=== PATIENT | male | born 1975 | race Caucasian/White ===

== ENCOUNTER 2021-03-18 08:00 | Outpatient (CLI) | payer BC ==
[2021-03-18 18:17] LABS: ALBUMIN 4.2 g/dL (3.2-5.5); ALBUMIN/GLOBULIN RATIO 1.2 (1.0-2.2); BILIRUBIN,TOTAL 0.4 mg/dL (0.2-1.0); CALCIUM 9.2 mg/dL (8.5-10.3); CREATININE 0.8 mg/dL (0.6-1.2); TOTAL PROTEIN 7.7 g/dL (6.7-8.2)
== END 2021-03-18 23:59 | disposition home or self-care (01) ==
LOC: LAB.S 08:00
PROVIDERS: ATTEND Physician Assistant
DX: R03.0 Elevated blood-pressure reading, without diagnosis of hypertension (principal)
CPT/HCPCS: 36415; 80053

== ENCOUNTER 2021-04-13 12:41 | Outpatient (CLI) | payer BC ==
[2021-04-13 13:17] LABS: ALBUMIN 4.3 g/dL (3.2-5.5); ALBUMIN/GLOBULIN RATIO 1.2 (1.0-2.2); BILIRUBIN,TOTAL 0.6 mg/dL (0.2-1.0); CALCIUM 9.1 mg/dL (8.5-10.3); CREATININE 0.8 mg/dL (0.6-1.2); POTASSIUM 3.7 mmol/L (3.5-5.0); TOTAL PROTEIN 7.8 g/dL (6.7-8.2)
== END 2021-04-13 12:42 | disposition home or self-care (01) ==
LOC: LAB 12:41
PROVIDERS: ATTEND Physician Assistant Medical
DX: Z01.812 Encounter for preprocedural laboratory examination (principal); R74.8 Abnormal levels of other serum enzymes; K42.9 Umbilical hernia without obstruction or gangrene; Z20.822 Contact with and (suspected) exposure to COVID-19
CPT/HCPCS: 36415; 80053

== ENCOUNTER 2021-04-18 06:20 | Day surgery (SDC) | payer BC ==
--- OUTSIDE RECORDS SUMMARY | 2021-04-18 06:22 | EXTERNAL MEDICAL SUMMARY RPT | Continuity of Care Document ---
:1975 Demographics Phone Unavailable Preferred Language Unknown Marital Status Unknown Rastafari Affiliation Unknown Race Unknown Ethnic Group Unknown Author Organization [place] Address [address] [id number] Phone Care Team Providers Name Role Phone MA Unavailable Unavailable CIRCULAR STUFFER Unavailable Unavailable PA-C Unavailable Unavailable PA-C Unavailable Unavailable Problems date description facility [id number] COMPREHENSIVE METABOLIC PANEL [facility] [id number] Liver enzymes abnormal [facility] [id number] Abnormal levels of other serum enzymes [facility] [id number] Other abnormal blood chemistry [facility] [id number] COMPREHENSIVE METABOLIC PANEL [facility] [id number] Tobacco smoking status [facility] [id number] Elevated blood-pressure reading, [facility] & without diagnosis of hypertension [facility] [id number] Elevated blood pressure reading [facility] & without diagnosis of hypertension [facility] [id number] Sprain of unspecified site of left [facility] & knee, initial encounter [facility] [id number] Elevated blood-pressure reading [facility] & without diagnosis of hypertension [facility] [id number] Congenital malformation, unspecified [facility] [id number] Congenital anomaly, unspecified [facility] [id number] Sprain of left knee [facility] [id number] Current every day smoker [facility] [id number] Abnormal umbilical cord [facility] Procedures date description facility [id number] COMPREHENSIVE METABOLIC PANEL [facility] [id number] COMPREHENSIVE METABOLIC PANEL [facility] [id number] COMPREHENSIVE METABOLIC PANEL [facility] [id number] COMPREHENSIVE METABOLIC PANEL [facility] Results test status date ordered by attending specimen loree e urea_nitrogen_blood unknown [id number] unknown unknown unk nown Glomerular_Filtration_ unknown 06626161 unknown unknown unknown rate potassium_blood unknown 82074501 unknown unknown unknown Glomerular_filtration_r unknown 80033160 unknown unknown unknown ate_1.73_sq_M.predicted _among_non-blacks_Volum e_Rate_Area_in_Serum_Pl asma_or_Blood_by_Creati nine-based_formula_MDRD _ bilirubin_serum_total unknown [id number] unknown unknown u nknown alanine_aminotransfera unknown 00384376 unknown unknown unknown se_SGPT_serum carbon_dioxide_serum_t unknown [id number] unknown unknown unknown otal aspartate_aminotransfe unknown 44412249 unknown unknown unknown rase_SGOT_serum protein_total_serum unknown 31473265 unknown unknown unk nown blood_glucose unknown 70667276 unknown unknown unknown potassium_blood unknown 97942790 unknown unknown unknown Urea_nitrogen_Mass_vol unknown 13532664 unknown unknown unknown ume_in_Serum_or_Plasma globulin_serum unknown 48441020 unknown unknown unknown alkaline_phosphatase_s unknown 28645550 unknown unknown unknown irina Sodium_Moles_volume_in unknown 36081085 unknown unknown unknown _Serum_or_Plasma Protein_Mass_volume_in unknown 98435764 unknown unknown unknown _Serum_or_Plasma anion_gap_serum unknown 27345910 unknown unknown unknown Glucose_Mass_volume_in unknown 75631501 unknown unknown unknown _Serum_or_Plasma Globulin_Mass_volume_i unknown 35677314 unknown unknown unknown n_Serum Creatinine_Mass_volume unknown 90555595 unknown unknown unknown _in_Serum_or_Plasma Chloride_Moles_volume_ unknown 38070506 unknown unknown unknown in_Serum_or_Plasma carbon_dioxide_serum_t unknown 31492471 unknown unknown unknown otal Calcium_Moles_volume_i unknown 45987692 unknown unknown unknown n_Serum_or_Plasma albumin_serum unknown 58831271 unknown unknown unknown Bilirubin.total_Mass_v unknown 87451076 unknown unknown unknown olume_in_Serum_or_Plasm a Aspartate_aminotransfe unknown 29672006 unknown unknown unknown rase_Enzymatic_activity _volume_in_Serum_or_Pla sma Anion_gap_4_in_Serum_o unknown 86496158 unknown unknown unknown r_Plasma creatinine_serum unknown 38629795 unknown unknown unknow n Alkaline_phosphatase_E unknown 63914235 unknown unknown unknown nzymatic_activity_volum e_in_Blood Albumin_Globulin_Mass_ unknown 98425994 unknown unknown unknown Ratio_in_Serum_or_Plasm a Albumin_Mass_volume_in unknown 05832908 unknown unknown unknown _Serum_or_Plasma Alanine_aminotransfera unknown 32058857 unknown unknown unknown se_Enzymatic_activity_v olume_in_Serum_or_Plasm a sodium_serum unknown 23260883 unknown unknown unknown albumin_globulin_ratio unknown 09793361 unknown unknown unknown _serum chloride_serum unknown 17148363 unknown unknown unknown calcium_serum unknown 91400483 unknown unknown unknown T unknown 58212975 unknown unknown unknown T unknown 54966907 unknown unknown unknown T unknown 64257927 unknown unknown unknown T unknown 97214561 unknown unknown unknown T unknown 08967311 unknown unknown unknown T unknown 04178721 unknown unknown unknown T unknown 41384385 unknown unknown unknown GFR_-_MDRD unknown 52438502 unknown unknown unknown T unknown 30100690 unknown unknown unknown T unknown 74126791 unknown unknown unknown T unknown 74570025 unknown unknown unknown T unknown 85341257 unknown unknown unknown T unknown 64722105 unknown unknown unknown T unknown 16292656 unknown unknown unknown BILIRUBIN_TOTAL unknown 39887089 unknown unknown unknown T unknown 25866214 unknown unknown unknown T unknown 40684323 unknown unknown unknown T unknown 91999409 unknown unknown unknown ALT_ALANINE_AMINOTRANS unknown 90999669 unknown unknown unknown FERASE ALKALINE_PHOSPHATASE unknown 03247980 unknown unknown un known T unknown 24663906 unknown unknown unknown T unknown 67237776 unknown unknown unknown ALBUMIN_GLOBULIN_RATIO unknown 86061342 unknown unknown unknown urea_nitrogen_blood unknown 83341807 unknown unknown unk nown Glomerular_Filtration_ unknown 68390107 unknown unknown unknown rate potassium_blood unknown 87573300 unknown unknown unknown Glomerular_filtration_r unknown 83001144 unknown unknown unknown ate_1.73_sq_M.predicted _among_non-blacks_Volum e_Rate_Area_in_Serum_Pl asma_or_Blood_by_Creati nine-based_formula_MDRD _ bilirubin_serum_total unknown 06821486 unknown unknown u nknown alanine_aminotransfera unknown 47615825 unknown unknown unknown se_SGPT_serum carbon_dioxide_serum_t unknown 84681275 unknown unknown unknown otal aspartate_aminotransfe unknown 10239400 unknown unknown unknown rase_SGOT_serum protein_total_serum unknown 38674453 unknown unknown unk nown blood_glucose unknown 01046150 unknown unknown unknown potassium_blood unknown 66021464 unknown unknown unknown Urea_nitrogen_Mass_vol unknown 06234364 unknown unknown unknown ume_in_Serum_or_Plasma globulin_serum unknown 06945125 unknown unknown unknown alkaline_phosphatase_s unknown 20073990 unknown unknown unknown irina Sodium_Moles_volume_in unknown 39095785 unknown unknown unknown _Serum_or_Plasma Protein_Mass_volume_in unknown 90599296 unknown unknown unknown _Serum_or_Plasma anion_gap_serum unknown 00546153 unknown unknown unknown Glucose_Mass_volume_in unknown 46626340 unknown unknown unknown _Serum_or_Plasma Globulin_Mass_volume_i unknown 84003786 unknown unknown unknown n_Serum Creatinine_Mass_volume unknown 96136291 unknown unknown unknown _in_Serum_or_Plasma Chloride_Moles_volume_ unknown 26195476 unknown unknown unknown in_Serum_or_Plasma carbon_dioxide_serum_t unknown 90862742 unknown unknown unknown otal Calcium_Moles_volume_i unknown 63533585 unknown unknown unknown n_Serum_or_Plasma albumin_serum unknown 10543721 unknown unknown unknown Bilirubin.total_Mass_v unknown 14653920 unknown unknown unknown olume_in_Serum_or_Plasm a Aspartate_aminotransfe unknown 41156433 unknown unknown unknown rase_Enzymatic_activity _volume_in_Serum_or_Pla sma Anion_gap_4_in_Serum_o unknown 06487858 unknown unknown unknown r_Plasma creatinine_serum unknown 84906466 unknown unknown unknow n Alkaline_phosphatase_E unknown 61121246 unknown unknown unknown nzymatic_activity_volum e_in_Blood Albumin_Globulin_Mass_ unknown 44110811 unknown unknown unknown Ratio_in_Serum_or_Plasm a Albumin_Mass_volume_in unknown 34587336 unknown unknown unknown _Serum_or_Plasma Alanine_aminotransfera unknown 05768472 unknown unknown unknown se_Enzymatic_activity_v olume_in_Serum_or_Plasm a sodium_serum unknown 19242354 unknown unknown unknown albumin_globulin_ratio unknown 55533019 unknown unknown unknown _serum chloride_serum unknown 78453588 unknown unknown unknown calcium_serum unknown 56660628 unknown unknown unknown T unknown 79104946 unknown unknown unknown T unknown 13727860 unknown unknown unknown T unknown 08266263 unknown unknown unknown T unknown 20239125 unknown unknown unknown T unknown 16531931 unknown unknown unknown T unknown 07964205 unknown unknown unknown T unknown 00436219 unknown unknown unknown GFR_-_MDRD unknown 48457666 unknown unknown unknown T unknown 35090389 unknown unknown unknown T unknown 90506161 unknown unknown unknown T unknown 47210218 unknown unknown unknown T unknown 42337253 unknown unknown unknown T unknown 79287134 unknown unknown unknown T unknown 38589480 unknown unknown unknown BILIRUBIN_TOTAL unknown 34789758 unknown unknown unknown T unknown 51639708 unknown unknown unknown T unknown 47912842 unknown unknown unknown T unknown 65804626 unknown unknown unknown ALT_ALANINE_AMINOTRANS unknown 24784069 unknown unknown unknown FERASE ALKALINE_PHOSPHATASE unknown 35013240 unknown unknown un known T unknown 39833132 unknown unknown unknown T unknown 27231840 unknown unknown unknown ALBUMIN_GLOBULIN_RATIO unknown 27301725 unknown unknown unknown urea_nitrogen_blood unknown 63601343 unknown unknown unk nown Glomerular_Filtration_ unknown 55682041 unknown unknown unknown rate potassium_blood unknown 12138038 unknown unknown unknown Glomerular_filtration_r unknown 99084658 unknown unknown unknown ate_1.73_sq_M.predicted _among_non-blacks_Volum e_Rate_Area_in_Serum_Pl asma_or_Blood_by_Creati nine-based_formula_MDRD _ bilirubin_serum_total unknown 31957530 unknown unknown u nknown alanine_aminotransfera unknown 68530745 unknown unknown unknown se_SGPT_serum carbon_dioxide_serum_t unknown 75133874 unknown unknown unknown otal aspartate_aminotransfe unknown 91317483 unknown unknown unknown rase_SGOT_serum protein_total_serum unknown 83305760 unknown unknown unk nown blood_glucose unknown 70602816 unknown unknown unknown potassium_blood unknown 43162234 unknown unknown unknown Urea_nitrogen_Mass_vol unknown 28554881 unknown unknown unknown ume_in_Serum_or_Plasma globulin_serum unknown 40287584 unknown unknown unknown alkaline_phosphatase_s unknown 70416959 unknown unknown unknown irina Sodium_Moles_volume_in unknown 10402813 unknown unknown unknown _Serum_or_Plasma Protein_Mass_volume_in unknown 23043074 unknown unknown unknown _Serum_or_Plasma anion_gap_serum unknown 48483462 unknown unknown unknown Glucose_Mass_volume_in unknown 42876495 unknown unknown unknown _Serum_or_Plasma Globulin_Mass_volume_i unknown 98716619 unknown unknown unknown n_Serum Creatinine_Mass_volume unknown 35860719 unknown unknown unknown _in_Serum_or_Plasma Chloride_Moles_volume_ unknown 41375267 unknown unknown unknown in_Serum_or_Plasma carbon_dioxide_serum_t unknown 32541234 unknown unknown unknown otal Calcium_Moles_volume_i unknown 22481441 unknown unknown unknown n_Serum_or_Plasma albumin_serum unknown 98144173 unknown unknown unknown Bilirubin.total_Mass_v unknown 17479453 unknown unknown unknown olume_in_Serum_or_Plasm a Aspartate_aminotransfe unknown 33064725 unknown unknown unknown rase_Enzymatic_activity _volume_in_Serum_or_Pla sma Anion_gap_4_in_Serum_o unknown 09278222 unknown unknown unknown r_Plasma creatinine_serum unknown 79395516 unknown unknown unknow n Alkaline_phosphatase_E unknown 53329009 unknown unknown unknown nzymatic_activity_volum e_in_Blood Albumin_Globulin_Mass_ unknown 59371751 unknown unknown unknown Ratio_in_Serum_or_Plasm a Albumin_Mass_volume_in unknown 92187387 unknown unknown unknown _Serum_or_Plasma Alanine_aminotransfera unknown 79456470 unknown unknown unknown se_Enzymatic_activity_v olume_in_Serum_or_Plasm a sodium_serum unknown 48845669 unknown unknown unknown albumin_globulin_ratio unknown 31866830 unknown unknown unknown _serum chloride_serum unknown 60682965 unknown unknown unknown calcium_serum unknown 88385736 unknown unknown unknown T unknown 41030040 unknown unknown unknown T unknown 77455653 unknown unknown unknown T unknown 13748647 unknown unknown unknown T unknown 37165586 unknown unknown unknown T unknown 46816902 unknown unknown unknown T unknown 73873779 unknown unknown unknown T unknown 17487383 unknown unknown unknown GFR_-_MDRD unknown 73451780 unknown unknown unknown T unknown 98322719 unknown unknown unknown T unknown 83445056 unknown unknown unknown T unknown 26516091 unknown unknown unknown T unknown 86390965 unknown unknown unknown T unknown 55606273 unknown unknown unknown T unknown 20210318 unknown unknown unknown BILIRUBIN_TOTAL unknown 20210318 unknown unknown unknown T unknown 20210318 unknown unknown unknown T unknown 20210318 unknown unknown unknown T unknown 20210318 unknown unknown unknown ALT_ALANINE_AMINOTRANS unknown 20210318 unknown unknown unknown FERASE ALKALINE_PHOSPHATASE unknown 20210318 unknown unknown un known T unknown 20210318 unknown unknown unknown T unknown 20210318 unknown unknown unknown ALBUMIN_GLOBULIN_RATIO unknown 20210318 unknown unknown unknown facility observation status value reference units lab code abn ormal line range notes [facility] urea_nitroge unknown 17 unknown mg/dL _9 unknow n unknown Clinic n_blood [facility] Glomerular_F unknown 105 unknown mL/min _66455 unknow n unknown Clinic iltration_rat Primary e [facility] potassium_bl unknown 4.0 unknown meq/L _6298-4 unkno wn unknown Clinic ood [facility] Glomerular_fi unknown 105 unknown mL/min _48642-3 unkn own unknown Clinic ltration_rate Primary _1.73_sq_M.pr Care & edicted_among Ancillary _non-blacks_V Services olume_Rate_Ar [facility] ea_in_Serum_P lasma_or_Bloo d_by_Creatini ne-based_form ula_MDRD_ [facility] bilirubin_se unknown 0.4 unknown mg/dL _43 unknow n unknown Clinic rum_total [facility] alanine_amin unknown 129 unknown U/L _40 unknow n unknown Clinic otransferase_ Primary SGPT_serum [facility] carbon_dioxi unknown 24 unknown mmol/L _3962 unknow n unknown Clinic de_serum_tota Primary l [facility] aspartate_am unknown 114 unknown U/L _39 unknow n unknown Clinic inotransferas Primary e_SGOT_serum [facility] protein_tota unknown 7.7 unknown g/dL _36 unknow n unknown Clinic l_serum [facility] blood_glucos unknown 109 unknown mg/dL _3565 unknow n unknown Clinic e [facility] potassium_bl unknown 4.0 unknown meq/L _3483 unknow n unknown Clinic ood [facility] Urea_nitroge unknown 17 unknown mg/dL _3094-0 unkno wn unknown Clinic n_Mass_volume Primary _in_Serum_or_ Care & Plasma [facility] globulin_ser unknown 3.5 unknown _3059 unknow n unknown Clinic um [facility] alkaline_pho unknown 85 unknown U/L _3 unknow n unknown Clinic sphatase_seru Primary m [facility] Sodium_Moles unknown 142 unknown mmol/L _2951-2 unkno wn unknown Clinic _volume_in_Se Primary rum_or_Plasma [facility] Protein_Mass unknown 7.7 unknown g/dL _2885-2 unkno wn unknown Clinic _volume_in_Se Primary rum_or_Plasma [facility] anion_gap_se unknown 11.0 unknown _279 unknow n unknown Clinic rum [facility] Glucose_Mass unknown 109 unknown mg/dL _2345-7 unkno wn unknown Clinic _volume_in_Se Primary rum_or_Plasma [facility] Globulin_Mas unknown 3.5 unknown _2336-6 unkno wn unknown Clinic s_volume_in_S Primary irina [facility] Creatinine_M unknown 0.8 unknown mg/dL _2160-0 unkno wn unknown Clinic ass_volume_in Primary _Serum_or_Pla Care & sma [facility] Chloride_Mol unknown 107 unknown mmol/L _5-0 unkno wn unknown Clinic es_volume_in_ Primary Serum_or_Plas Care & ma Ancillary [facility] carbon_dioxi unknown 24 unknown mmol/L _2027- unkno wn unknown Clinic de_serum_tota Primary l [facility] Calcium_Mole unknown 9.2 unknown mg/dL _1999-8 unkno wn unknown Clinic s_volume_in_S Primary erum_or_Plasm Care & a [facility] albumin_seru unknown 4.2 unknown g/dL _2 unknow n unknown Clinic m [facility] Bilirubin.to unknown 0.4 unknown mg/dL _1974- unkno wn unknown Clinic tal_Mass_volu Primary me_in_Serum_o Care & r_Plasma [facility] Aspartate_am unknown 114 unknown U/L _1920-8 unkno wn unknown Clinic inotransferas Primary e_Enzymatic_a Care & ctivity_volum Ancillary e_in_Serum_or Services _Plasma [facility] Anion_gap_4_ unknown 11.0 unknown _1863-0 unkno wn unknown Clinic in_Serum_or_P Primary lasma Care & [facility]illary [facility] creatinine_s unknown 0.8 unknown mg/dL _18 unknow n unknown Clinic irina [facility] Alkaline_pho unknown 85 unknown U/L _1783-0 unkno wn unknown Clinic sphatase_Enzy Primary matic_activit Care & y_volume_in_B Ancillary lood Services [facility] Albumin_Glob unknown 1.2 unknown _1759-0 unkno wn unknown Clinic ulin_Mass_Rat Primary io_in_Serum_o Care & r_Plasma [facility] Albumin_Mass unknown 4.2 unknown g/dL _1751-7 unkno wn unknown Clinic _volume_in_Se Primary rum_or_Plasma [facility] Alanine_amin unknown 129 unknown U/L _1742-6 unkno wn unknown Clinic otransferase_ Primary Enzymatic_act Care & ivity_volume_ Ancillary in_Serum_or_P Services lasma [facility] sodium_serum unknown 142 unknown mmol/L _159 unknow n unknown Clinic [facility] albumin_glob unknown 1.2 unknown _146 unknow n unknown Clinic ulin_ratio_se Primary rum [facility] chloride_ser unknown 107 unknown mmol/L _13 unknow n unknown Clinic um [facility] calcium_seru unknown 9.2 unknown mg/dL _11 unknow n unknown Clinic m [facility] T unknown 0.4 unknown mg/dL TOTAL_BI unknown u nknown Clinic LI [facility] T unknown 7.7 unknown g/dL PRO_TOTA unknown u [facility] L [facility] T unknown 142 unknown mmol/L NA unknown [facility] T unknown 4.0 unknown meq/L K unknown [facility] T unknown 109 unknown mg/dL GLU unknown [facility] T unknown 3.[address] [facility] T unknown 105 unknown mL/min GFR_-_MD unknown [facility] RD [facility] GFR_-_MDRD unknown 105 unknown mL/min GFR unknown unknown Clinic [facility] T unknown 11.[address] [facility] T unknown 0.8 unknown mg/dL CREAT unknown [facility] T unknown 24 unknown mmol/L CO2 unknown [facility] T unknown 107 unknown mmol/L CL unknown [facility] T unknown 9.2 unknown mg/dL CA unknown [facility] T unknown 17 unknown mg/dL BUN unknown [facility] BILIRUBIN_TO unknown 0.4 unknown mg/dL BILIT unknow n unknown Clinic SUSANNE [facility] T unknown 1.2 unknown A_G_RATI unknown u [facility] O [facility] T unknown 114 unknown U/L AST unknown [facility] T unknown 129 unknown U/L ALT_SGPT unknown u [facility] _ [facility] ALT_ALANINE_ unknown 129 unknown U/L ALT unknow n unknown Clinic AMINOTRANSFER Primary ASE Care & Ancillary Services [facility] ALKALINE_PHO unknown 85 unknown U/L ALP unknow n unknown Clinic SPHATASE [facility] T unknown 85 unknown U/L ALK_PHOS unknown u nknown Clinic [facility] T unknown 4.2 unknown g/dL ALB unknown unk nown Clinic [facility] ALBUMIN_GLOB unknown 1.2 unknown AGRATIO unkno wn unknown Clinic ULIN_RATIO [facility] urea_nitroge unknown 17 unknown mg/dL _9 unknow n unknown Clinic n_blood [facility] Glomerular_F unknown 105 unknown mL/min _66455 unknow n unknown Clinic iltration_rat Primary e [facility] potassium_bl unknown 4.0 unknown meq/L _6298-4 unkno wn unknown Clinic ood [facility] Glomerular_fi unknown 105 unknown mL/min _48642-3 unkn own unknown Clinic ltration_rate Primary _1.73_sq_M.pr Care & edicted_among Ancillary _non-blacks_V Services olume_Rate_Ar [facility] ea_in_Serum_P lasma_or_Bloo d_by_Creatini ne-based_form ula_MDRD_ [facility] bilirubin_se unknown 0.4 unknown mg/dL _43 unknow n unknown Clinic rum_total [facility] alanine_amin unknown 129 unknown U/L _40 unknow n unknown Clinic otransferase_ Primary SGPT_serum Care [facility] carbon_dioxi unknown 24 unknown mmol/L _3962 unknow n unknown Clinic de_serum_tota Primary l [facility] aspartate_am unknown 114 unknown U/L _39 unknow n unknown Clinic inotransferas Primary e_SGOT_serum Care & [facility] protein_tota unknown 7.7 unknown g/dL _36 unknow n unknown Clinic l_serum [facility] blood_glucos unknown 109 unknown mg/dL _3565 unknow n unknown Clinic e [facility] potassium_bl unknown 4.0 unknown meq/L _3483 unknow n unknown Clinic ood [facility] Urea_nitroge unknown 17 unknown mg/dL _3094-0 unkno wn unknown Clinic n_Mass_volume Primary _in_Serum_or_ Care & Plasma [facility]illary [facility] globulin_ser unknown 3.5 unknown _3059 unknow n unknown Clinic um [facility] alkaline_pho unknown 85 unknown U/L _3 unknow n unknown Clinic sphatase_seru [facility] Sodium_Moles unknown 142 unknown mmol/L _2951-2 unkno wn unknown Clinic _volume_in_Se Primary rum_or_Plasma [facility] Protein_Mass unknown 7.7 unknown g/dL _2885-2 unkno wn unknown Clinic _volume_in_Se Primary rum_or_Pl[facility] anion_gap_se unknown 11.0 unknown _279 unknow n unknown Clinic rum [facility] Glucose_Mass unknown 109 unknown mg/dL _2345-7 unkno wn unknown Clinic _volume_in_Se Primary rum_or_Plasma [facility] Globulin_Mas unknown 3.5 unknown _2336-6 unkno wn unknown Clinic s_volume_in_S [facility] irina [facility] Creatinine_M unknown 0.8 unknown mg/dL _2160-0 unkno wn unknown Clinic ass_volume_in Primary _Serum_or_Pla Care & sma [facility] Chloride_Mol unknown 107 unknown mmol/L _5-0 unkno wn unknown Clinic es_volume_in_ Primary Serum_or_Plas Care & ma [facility]illary [facility] carbon_dioxi unknown 24 unknown mmol/L _8-9 unkno wn unknown Clinic de_serum_tota [facility] Calcium_Mole unknown 9.2 unknown mg/dL _1999-8 unkno wn unknown Clinic s_volume_in_S Primary erum_or_Plasm Care & a [facility] albumin_seru unknown 4.2 unknown g/dL _2 unknow n unknown Clinic m [facility] Bilirubin.to unknown 0.4 unknown mg/dL _1974- unkno wn unknown Clinic tal_Mass_volu Primary me_in_Serum_o Care & r_Plasma [facility] Aspartate_am unknown 114 unknown U/L _1920-8 unkno wn unknown Clinic inotransferas Primary e_Enzymatic_a Care & ctivity_volum Ancillary e_in_Serum_or Services _Plasma [facility] Anion_gap_4_ unknown 11.0 unknown _1863-0 unkno wn unknown Clinic in_Serum_or_P [facility] lasma [facility] creatinine_s unknown 0.8 unknown mg/dL _18 unknow n unknown Clinic irina [facility] Alkaline_pho unknown 85 unknown U/L _1783-0 unkno wn unknown Clinic sphatase_Enzy Primary matic_activit Care & y_volume_in_B Ancillary lood Services [facility] Albumin_Glob unknown 1.2 unknown _1759-0 unkno wn unknown Clinic ulin_Mass_Rat Primary io_in_Serum_o Care & r_Plasma [facility] Albumin_Mass unknown 4.2 unknown g/dL _1751-7 unkno wn unknown Clinic _volume_in_Se Primary rum_or_Plasma [facility] Alanine_amin unknown 129 unknown U/L _1742-6 unkno wn unknown Clinic otransferase_ Primary Enzymatic_act Care & ivity_volume_ Ancillary in_Serum_or_P Services [facility]ma [facility] sodium_serum unknown 142 unknown mmol/L _159 unknow n unknown Clinic [facility] albumin_glob unknown 1.2 unknown _146 unknow n unknown Clinic ulin_ratio_se [facility] chloride_ser unknown 107 unknown mmol/L _13 unknow n unknown Clinic um [facility] calcium_seru unknown 9.2 unknown mg/dL _11 unknow n unknown Clinic m [facility] T unknown 0.4 unknown mg/dL TOTAL_BI unknown u nknown Clinic LI [facility] T unknown 7.7 unknown g/dL PRO_TOTA unknown u [facility] L [facility] T unknown 142 unknown mmol/L NA unknown [facility] T unknown 4.0 unknown meq/L K unknown [facility] T unknown 109 unknown mg/dL GLU unknown [facility] T unknown 3.[address] [facility] T unknown 105 unknown mL/min GFR_-_MD unknown u [facility] RD [facility] GFR_-_MDRD unknown 105 unknown mL/min GFR unknown unknown Clinic [facility] T unknown 11.[address] [facility] T unknown 0.8 unknown mg/dL CREAT unknown [facility] T unknown 24 unknown mmol/L CO2 unknown [facility] T unknown 107 unknown mmol/L CL unknown [facility] T unknown 9.2 unknown mg/dL CA unknown [facility] T unknown 17 unknown mg/dL BUN unknown [facility] BILIRUBIN_TO unknown 0.4 unknown mg/dL BILIT unknow n unknown Clinic SUSANNE [facility] T unknown 1.2 unknown A_G_RATI unknown u [facility] O [facility] T unknown 114 unknown U/L AST unknown [facility] T unknown 129 unknown U/L ALT_SGPT unknown u [facility] _ [facility] ALT_ALANINE_ unknown 129 unknown U/L ALT unknow n unknown Clinic AMINOTRANSFER Primary ASE [facility] ALKALINE_PHO unknown 85 unknown U/L ALP unknow n unknown Clinic SPHATASE [facility] T unknown 85 unknown U/L ALK_PHOS unknown u nknown Clinic [facility] T unknown 4.2 unknown g/dL ALB unknown unk nown Clinic [facility] ALBUMIN_GLOB unknown 1.2 unknown AGRATIO unkno wn unknown Clinic ULIN_RATIO [facility] urea_nitroge unknown 17 unknown mg/dL _9 unknow n unknown Clinic n_blood [facility] Glomerular_F unknown 105 unknown mL/min _66455 unknow n unknown Clinic iltration_rat [facility] potassium_bl unknown 4.0 unknown meq/L _6298-4 unkno wn unknown Clinic ood [facility] Glomerular_fi unknown 105 unknown mL/min _48642-3 unkn own unknown Clinic ltration_rate Primary _1.73_sq_M.pr Care & edicted_among Ancillary _non-blacks_V Services olume_Rate_Ar [facility] ea_in_Serum_P lasma_or_Bloo d_by_Creatini ne-based_form ula_MDRD_ [facility] bilirubin_se unknown 0.4 unknown mg/dL _43 unknow n unknown Clinic rum_total [facility] alanine_amin unknown 129 unknown U/L _40 unknow n unknown Clinic otransferase_ Primary SGPT_serum [facility] carbon_dioxi unknown 24 unknown mmol/L _3962 unknow n unknown Clinic de_serum_tota [facility] aspartate_am unknown 114 unknown U/L _39 unknow n unknown Clinic inotransferas Primary e_SGOT_serum [facility] protein_tota unknown 7.7 unknown g/dL _36 unknow n unknown Clinic l_serum [facility] blood_glucos unknown 109 unknown mg/dL _3565 unknow n unknown Clinic e [facility] potassium_bl unknown 4.0 unknown meq/L _3483 unknow n unknown Clinic ood [facility] Urea_nitroge unknown 17 unknown mg/dL _3094-0 unkno wn unknown Clinic n_Mass_volume Primary _in_Serum_or_ Care & Plasma [facility]illary [facility] globulin_ser unknown 3.5 unknown _3059 unknow n unknown Clinic um [facility] alkaline_pho unknown 85 unknown U/L _3 unknow n unknown Clinic sphatase_seru [facility] Sodium_Moles unknown 142 unknown mmol/L _2951-2 unkno wn unknown Clinic _volume_in_Se Primary rum_or_Plasma [facility] Protein_Mass unknown 7.7 unknown g/dL _2885-2 unkno wn unknown Clinic _volume_in_Se Primary rum_or_Plasma [facility] anion_gap_se unknown 11.0 unknown _279 unknow n unknown Clinic rum [facility] Glucose_Mass unknown 109 unknown mg/dL _2345-7 unkno wn unknown Clinic _volume_in_Se Primary rum_or_Plasma [facility] Globulin_Mas unknown 3.5 unknown _2336-6 unkno wn unknown Clinic s_volume_in_S [facility] irina [facility] Creatinine_M unknown 0.8 unknown mg/dL _2160-0 unkno wn unknown Clinic ass_volume_in Primary _Serum_or_Pla Care & sma [facility] Chloride_Mol unknown 107 unknown mmol/L _5-0 unkno wn unknown Clinic es_volume_in_ Primary Serum_or_Plas Care & ma Ancillary Services [facility] carbon_dioxi unknown 24 unknown mmol/L _2027- unkno wn unknown Clinic de_serum_tota [facility] Calcium_Mole unknown 9.2 unknown mg/dL _1999- unkno wn unknown Clinic s_volume_in_S Primary erum_or_Plasm Care & a [facility]illary [facility] albumin_seru unknown 4.2 unknown g/dL _2 unknow n unknown Clinic m [facility] Bilirubin.to unknown 0.4 unknown mg/dL _1974- unkno wn unknown Clinic tal_Mass_volu Primary me_in_Serum_o Care & r_Plasma [facility]illary [facility] Aspartate_am unknown 114 unknown U/L _1920-8 unkno wn unknown Clinic inotransferas Primary e_Enzymatic_a Care & ctivity_volum Ancillary e_in_Serum_or Services _Plasma [facility] Anion_gap_4_ unknown 11.0 unknown _1863-0 unkno wn unknown Clinic in_Serum_or_P Primary lasma [facility] creatinine_s unknown 0.8 unknown mg/dL _18 unknow n unknown Clinic irina [facility] Alkaline_pho unknown 85 unknown U/L _1783-0 unkno wn unknown Clinic sphatase_Enzy Primary matic_activit Care & y_volume_in_B Ancillary lood Services [facility] Albumin_Glob unknown 1.2 unknown _1759-0 unkno wn unknown Clinic ulin_Mass_Rat Primary io_in_Serum_o Care & r_Plasma [facility]illary [facility] Albumin_Mass unknown 4.2 unknown g/dL _1751-7 unkno wn unknown Clinic _volume_in_Se Primary rum_or_Plasma [facility] Alanine_amin unknown 129 unknown U/L _1742-6 unkno wn unknown Clinic otransferase_ Primary Enzymatic_act Care & ivity_volume_ Ancillary in_Serum_or_P Services [facility] sodium_serum unknown 142 unknown mmol/L _159 unknow n unknown Clinic [facility] albumin_glob unknown 1.2 unknown _146 unknow n unknown Clinic ulin_ratio_se Primary rum [facility] chloride_ser unknown 107 unknown mmol/L _13 unknow n unknown Clinic um [facility] calcium_seru unknown 9.2 unknown mg/dL _11 unknow n unknown Clinic m [facility] T unknown 0.4 unknown mg/dL TOTAL_BI unknown u nknown Clinic LI [facility] T unknown 7.7 unknown g/dL PRO_TOTA unknown u nknown Clinic L [facility] [place] [facility] T unknown 142 unknown mmol/L NA unknown [facility] T unknown 4.0 unknown meq/L K unknown [facility] T unknown 109 unknown mg/dL GLU unknown [facility] T unknown 3.[address] [facility] T unknown 105 unknown mL/min GFR_-_MD unknown u [facility] RD [facility] GFR_-_MDRD unknown 105 unknown mL/min GFR unknown unknown Clinic [facility] T unknown 11.[address] [facility] T unknown 0.8 unknown mg/dL CREAT unknown [facility] T unknown 24 unknown mmol/L CO2 unknown [facility] T unknown 107 unknown mmol/L CL unknown [facility] T unknown 9.2 unknown mg/dL CA unknown [facility] T unknown 17 unknown mg/dL BUN unknown [facility] BILIRUBIN_TO unknown 0.4 unknown mg/dL BILIT unknow n unknown Clinic SUSANNE [facility] T unknown 1.2 unknown A_G_RATI unknown u [facility] O [facility] T unknown 114 unknown U/L AST unknown [facility] T unknown 129 unknown U/L ALT_SGPT unknown u [facility] _ [facility] ALT_ALANINE_ unknown 129 unknown U/L ALT unknow n unknown Clinic AMINOTRANSFER Primary ASE [facility] & Anc[facility] ALKALINE_PHO unknown 85 unknown U/L ALP unknow n unknown Clinic SPHATASE [facility] T unknown 85 unknown U/L ALK_PHOS unknown u [facility] T unknown 4.2 unknown g/dL ALB unknown unk nown Clinic [facility] [place] [facility] ALBUMIN_GLOB unknown 1.2 unknown AGRATIO unkno wn unknown Clinic ULIN_RATIO [facility] [place] Vital Signs date measurement value source [id number] weight_standard 280 lb [id number] weight_metric 127.01 kg [id number] temperature_standard 99.2 F 16799018 temperature_metric 37.33 C [id number] respiration_rate 20 /min [id number] height_standard 69 in [id number] height_metric 175.26 cm 47447425 heart_rate 92 /min 10344656 BP_systolic 183 mm[Hg] 70549887 BP_diastolic 121 mm[Hg] 99204663 BMI 41.50 kg/m2 10227078 weight_standard 280 lb 44595754 weight_metric 127.01 kg 90811844 temperature_standard 99.2 F 53529303 temperature_metric 37.33 C 84255827 respiration_rate 20 /min 73678051 height_standard 69 in 82551416 height_metric 175.26 cm 30922292 heart_rate 92 /min 43171847 BP_systolic 183 mm[Hg] 92010470 BP_diastolic 121 mm[Hg] 05980429 BMI 41.50 kg/m2 96083568 weight_standard 280 lb 44621582 weight_metric 127.01 kg 01570485 temperature_standard 99.2 F [id number] temperature_metric 37.33 C 33691768 respiration_rate 20 /min 03589011 height_standard 69 in 65314745 height_metric 175.26 cm 98698950 heart_rate 92 /min 92374535 BP_systolic 183 mm[Hg] 73200439 BP_diastolic 121 mm[Hg] 56387331 BMI 41.50 kg/m2 50841055 weight_standard 280 lb 85840684 weight_metric 127.01 kg 94368329 temperature_standard 99.2 F 65449048 temperature_metric 37.33 C 01919853 respiration_rate 20 /min 18626005 height_standard 69 in 23062407 height_metric 175.26 cm 30591677 heart_rate 92 /min 54882668 BP_systolic 183 mm[Hg] 37371131 BP_diastolic 121 mm[Hg] 86358423 BMI 41.50 kg/m2
[2021-04-18] MEDS ORDERED: ceFAZolin 3 GM in SODIUM CHLORIDE 0.9% 100ML 100 ML IV ONE (06:30)
[2021-04-18] MEDS ORDERED: LACTATED RINGERS 1,000 ML IV ONE (06:37)
[2021-04-18 06:42] VITALS: BP 189/122
[2021-04-18] MEDS ORDERED: BUPIVACAINE 0.25% PF 30 ML VIAL ONE (06:55)
[2021-04-18] MEDS ORDERED: DEXAMETHASONE 4 MG/ML VIAL ONE (07:02)
[2021-04-18] MEDS ORDERED: PROPOFOL 200 MG/20 ML VIAL IVP ONE (07:02)
[2021-04-18] MEDS ORDERED: fentaNYL 100 MCG/2 ML VIAL ONE (07:02)
[2021-04-18] MEDS ORDERED: ONDANSETRON 4 MG/2 ML VIAL ONE (07:02)
[2021-04-18] MEDS ORDERED: KETOROLAC 30 MG/ML VIAL ONE (07:02)
[2021-04-18] MEDS ORDERED: LIDOCAINE-MPF 2% 5 ML VIAL ONE (07:02)
[2021-04-18] MEDS ORDERED: ROCURONIUM 50 MG/5 ML VIAL ONE (07:10)
[2021-04-18] MEDS ORDERED: SEVOFLURANE 250 ML LIQUID INH ONE (07:11)
--- NOTE | 2021-04-18 07:40 | CONSULTATION NOTE ---
Consultation Report: Pt had repeated BP readings of DBP over 100. 188/129, 182/130, 188/114. Pt new diagnosis of HTN, with 3 weeks on Losartan. Discussed with pt and Dr Bradshaw the risk undergoing anesthesia/surgery with uncontrolled HTN. Pt will be rescheduled at a later date after f/u with PCP and better controlled HTN. Pt states understanding
== END 2021-04-18 06:21 | disposition home or self-care (01) ==
LOC: SDS 06:20
PROVIDERS: ATTEND Surgery
DX: I10 Essential (primary) hypertension (principal); Z53.09 Procedure and treatment not carried out because of other contraindication
CPT/HCPCS: J3490; J7120

== ENCOUNTER 2021-05-05 11:14 | Outpatient (CLI) | payer BC ==
[2021-05-05 15:49] LABS: ALBUMIN 4.1 g/dL (3.2-5.5); BILIRUBIN,DIRECT 0.1 mg/dL (0.1-0.5); BILIRUBIN,TOTAL 0.6 mg/dL (0.2-1.0); TOTAL PROTEIN 7.5 g/dL (6.7-8.2)
[2021-05-08 14:06] LABS: HEPATITIS B CORE AB TOTAL NON-REACTIVE (NON-REACTIVE); HEPATITIS B SURFACE ANTIGEN NON-REACTIVE (NON-REACTIVE); HEPATITIS C ANTIBODY NON-REACTIVE (NON-REACTIVE)
[2021-05-08 20:57] LABS: HCV RNA QUANT RT PCR <15 NOT DETECTED IU/mL
== END 2021-05-05 11:15 | disposition home or self-care (01) ==
LOC: LAB.S 11:14
PROVIDERS: ATTEND Physician Assistant Medical
DX: F10.20 Alcohol dependence, uncomplicated (principal); R74.8 Abnormal levels of other serum enzymes; R16.0 Hepatomegaly, not elsewhere classified
CPT/HCPCS: 36415; 80076; 86317; 86704; 86709; 86803; 87340; 87522

== ENCOUNTER 2021-06-25 08:11 | Outpatient (CLI) | payer BC ==
--- NOTE | 2021-06-25 09:30 | Ultrasound Report ---
PROCEDURE: Abdomen Complete INDICATIONS: ELEVATED LIVER ENZYMES, HEPTOMEGALY TECHNIQUE: Real-time scanning was performed of the abdominal and retroperitoneal organs, with image documentatio n. COMPARISON: None. FINDINGS: Liver: The liver demonstrates diffusely increased echotexture without focal abnormalities which is co nsistent with chronic hepatocellular disease/hepatic steatosis. Gallbladder: Gallbladder is normal in appearance without gallstones, gallbladder wall thickening, or pericholecystic fluid. Negative sonographic Pryor's sign. Biliary ducts: Intrahepatic bile ducts are non-dilated. Extrahepatic bile duct caliber measures 4 m m. Normal is 6-7 mm or less in diameter, or 10 mm or less post-cholecystectomy. Pancreas: Visualized portions of the pancreas are sonographically normal. Spleen: Spleen is normal in size and homogeneous in echotexture. Kidneys: Kidneys are normal in size and echotexture. Right kidney measures 11.9 cm long; left kidne y measures 12.1 cm long. No hydronephrosis or nephrolithiasis. No solid masses. Aorta: Visualized aorta is normal in caliber at less than 3 cm. Iliacs: Proximal common iliac arteries are normal in caliber at less than 2.5 cm. IVC: Intrahepatic inferior vena cava is patent. Miscellaneous: No free abdominal fluid. IMPRESSION: Liver demonstrates diffusely increased echotexture without focal intrahepatic abnormalities compatibl e with hepatic steatosis/chronic hepatocellular disease. This can explain patient's history of elevat ed liver function tests. Reviewed by: Segun Ryder MD on 06/25/2021 9:29 AM PDT Approved by: Segun Ryder MD on 06/25/2021 9:29 AM PDT Station ID: [id number]
== END 2021-06-25 08:12 | disposition home or self-care (01) ==
LOC: DI 08:11
PROVIDERS: ATTEND Physician Assistant
DX: R74.8 Abnormal levels of other serum enzymes (principal); R16.0 Hepatomegaly, not elsewhere classified; Z80.0 Family history of malignant neoplasm of digestive organs; K76.0 Fatty (change of) liver, not elsewhere classified; I10 Essential (primary) hypertension; F10.20 Alcohol dependence, uncomplicated

== ENCOUNTER 2022-02-28 11:30 | Day surgery (SDC) | payer BC ==
[2022-02-28] MEDS ORDERED: LACTATED RINGERS 1,000 ML IV ONE ×2 (11:51→15:37)
--- NOTE | 2022-02-28 12:28 | ANESTHESIA ---
Pre-Anesthesia VS, & Labs - Diagnosis umbilical hernia - Procedure umbilical hernia repair Vital Signs: Temp Pulse Resp BP Pulse Ox 37.1 C 99 12 133/81 H 97 02/28/22 11:52 02/28/22 11:52 02/28/22 11:52 02/28/22 11:52 02/28/22 11:52 Height: 5 ft 9 in Weight (kg): 136.1 kg Body Mass Index: 44.3 BMI Classification: Morbidly Obese - NPO >8 hours - Lab Results Lab results reviewed: Yes Home Medications and Allergies Home Medications: Ambulatory Orders Amlodipine Besylate [Norvasc] 10 mg PO DAILY 02/19/22 Losartan/Hydrochlorothiazide [Losartan-Hctz 100-12.5 mg Tab] 1 tab PO DAILY 02/19/22 [place]-3/Dha/Epa/Fish Oil [Fish Oil 1,000 mg Softgel] 1 each PO DAILY 02/19/22 Omeprazole Magnesium 20 mg PO DAILY 02/19/22 methocarbamoL [Methocarbamol] 500 mg PO TID PRN 02/19/22 Amlodipine Besylate [Norvasc] 10 mg PO DAILY 02/19/22 Losartan/Hydrochlorothiazide [Losartan-Hctz 100-12.5 mg Tab] 1 tab PO DAILY 02/19/22 [place]-3/Dha/Epa/Fish Oil [Fish Oil 1,000 mg Softgel] 1 each PO DAILY 02/19/22 Omeprazole Magnesium 20 mg PO DAILY 02/19/22 methocarbamoL [Methocarbamol] 500 mg PO TID PRN 02/19/22 Allergies/Adverse Reactions: Allergies Allergy/AdvReac Type Severity Reaction Status Date / Time No Known Drug Allergies Allergy Verified 02/27/22 11:48 Anes History & Medical History - Anesthetic History Anesthesia Complications: reports: No previous complications Family history of Anesthesia Complications: Denies Family history of Malignant Hyperthermia: Denies - Medical History Cardiovascular: reports: Hypertension Pulmonary: reports: None Gastrointestinal: reports: None Urinary: reports: None Musculoskeletal: reports: Chronic back pain Skin: reports: None - Surgical History General: reports: Appendectomy Eyes Ears Nose Throat (EENT): reports: Tonsil/Adenoidectomy Exam General: Alert, Oriented x3, Cooperative Dental: WNL Mouth Openin Fingerbreadth Neck Mobility: Normal Mallampati classification: I Thyromental Distance: 4-6 cm Respiratory: Lungs clear, Normal breath sounds, No respiratory distress Cardiovascular: Regular rate Neurological: Normal speech Mental/Cognitive Status: Alert/Oriented X3, Normal for patient Cognitive Status: Within normal limits Plan Anesthesia Type: General Consent for Procedure(s) Verified and Reviewed: Yes Code Status: Attempt Resuscitation ASA classification: 2-Mild systemic disease Is this case an emergency?: No
[2022-02-28] MEDS ORDERED: MIDAZOLAM 2 MG/2 ML VIAL ONE (13:07)
[2022-02-28] MEDS ORDERED: PROPOFOL 200 MG/20 ML VIAL IVP ONE ×2 (13:07→14:29)
[2022-02-28] MEDS ORDERED: LIDOCAINE-MPF 2% 5 ML VIAL ONE (13:07)
[2022-02-28] MEDS ORDERED: fentaNYL 100 MCG/2 ML VIAL ONE ×3 (13:07→16:14)
[2022-02-28] MEDS ORDERED: ROCURONIUM 50 MG/5 ML VIAL ONE ×2 (13:09→14:49)
[2022-02-28] MEDS ORDERED: BUPIVACAINE 0.25% PF 30 ML VIAL ONE ×2 (13:12→13:45)
--- NOTE | 2022-02-28 14:05 | HISTORY & PHYSICAL EXAMINATION ---
Chief Complaint - Chief Complaint Chief Complaint: umbilical pain and bulge History of Present Illness - History Obtained From Records Reviewed: yes History obtained from: pt Exam Limitations: none - History of Present Illness HPI Comment/Other: umbilical hernia. getting bigger and more painful History - Past Medical History Cardiovascular: reports: Hypertension Respiratory: reports: None GI: reports: None : reports: None Psych: reports: ADD/ADHD Musculoskeletal: reports: Chronic back pain Derm: reports: None MRSA Hx?: No - Past Surgical History General: reports: Appendectomy HEENT: reports: Tonsil/Adenoidectomy Meds/Allgy - Home Medications Home Medications: Ambulatory Orders Medication Instructions Recorded Confirmed Amlodipine Besylate [Norvasc] 10 mg PO DAILY 02/19/22 02/19/22 Losartan/Hydrochlorothiazide 1 tab PO DAILY 02/19/22 02/19/22 [Losartan-Hctz 100-12.5 mg Tab] [place]-3/Dha/Epa/Fish Oil [Fish Oil 1 each PO DAILY 02/19/22 02/19/22 1,000 mg Softgel] Omeprazole Magnesium 20 mg PO DAILY 02/19/22 02/19/22 methocarbamoL [Methocarbamol] 500 mg PO TID PRN 02/19/22 02/19/22 - Allergies Allergies/Adverse Reactions: Allergies Allergy/AdvReac Type Severity Reaction Status Date / Time No Known Drug Allergies Allergy Verified 02/27/22 11:48 Review of Systems - Constitutional Constitutional: reports: Fatigue (10 pt ros as above otherwise unremarkable. bp now under good control) Exam - Vital Signs Vital Signs: Vital Signs x48h Temp Pulse Resp BP Pulse Ox 02/28/22 11:52 37.1 C 99 12 133/81 H 97 - Physical Exam General Appearance: positive: No acute distress, Alert Eyes Bilateral: positive: PERRL, EOMI Neck: positive: No JVD Respiratory: positive: No respiratory distress, Breath sounds nml Cardiovascular: positive: Regular rate & rhythm Rectal: positive: Other (large umbilical hernia present) Neurologic/Psychiatric: positive: Oriented x3 Conclusion/Plan - Problem List (1) Umbilical hernia Conclusion/Plan: plan open repair with mesh. parq held and consent obtained - Lab Results Lab results reviewed: Yes
[2022-02-28] MEDS ORDERED: ROPIVACAINE 0.5% PF 30 ML VIAL ONE (14:21)
[2022-02-28] MEDS ORDERED: ONDANSETRON 4 MG/2 ML VIAL ONE (14:27)
[2022-02-28] MEDS ORDERED: DEXAMETHASONE 4 MG/ML VIAL ONE (14:27)
[2022-02-28] MEDS ORDERED: ePHEDrine 50 MG/ML VIAL IVP PRN (14:36)
[2022-02-28] MEDS ORDERED: HYDROmorphone 0.5 MG/0.5 ML SYRINGE IVP PRN (14:36)
[2022-02-28] MEDS ORDERED: NALOXONE 0.4 MG/ML VIAL IVP PRN (14:36)
[2022-02-28] MEDS ORDERED: ATROPINE ABBOJECT 1 MG/10 ML SYRINGE IVP PRN (14:36)
[2022-02-28] MEDS ORDERED: MORPHINE 2 MG/ML CARPUJECT IVP PRN (14:36)
[2022-02-28] MEDS ORDERED: METOCLOPRAMIDE 10 MG/2 ML VIAL IVP PRN (14:36)
[2022-02-28] MEDS ORDERED: ONDANSETRON 4 MG/2 ML VIAL IVP PRN (14:36)
[2022-02-28] MEDS ORDERED: BUPIVACAINE 0.25% PF 30 ML VIAL SUBQ ONE (14:40)
[2022-02-28] MEDS ORDERED: LACTATED RINGERS 1,000 ML IV SCH (15:00)
[2022-02-28] MEDS ORDERED: SUGAMMADEX 200 MG/2 ML VIAL IVP ONE (15:15)
[2022-02-28] MEDS ORDERED: ACETAMINOPHEN 1,000 MG/100 ML 100 ML IV ONE (15:32)
[2022-02-28] MEDS ORDERED: oxyCODONE 5 MG TABLET PO PRN (15:46)
[2022-02-28] MEDS: HYDROmorphone 1 MG/ML CARPUJECT ONE ×2 (15:52→15:57)
--- NOTE | 2022-02-28 16:02 | OPERATIVE REPORT ---
Operative Report - General Procedure Date: 02/28/22 Planned Procedure: open umbilical hernia repair with mesh Pre-Op Diagnosis: umbilical hernia Procedure Performed: open umbilical hernia repair with mesh Post Op Diagnosis: umbilical hernia - Procedure Note Primary Surgeon: dilia giles Anesthesia Technique: General ET tube, Local Pathology: none Estimated Blood Loss (mL): 1 Drain/Tube Type: Other (none) Indications: painful hernia bulge Findings: 3 x 4 cm defect Complications: none - Other Other Information/Narrative: The patient was properly identified brought to the operating room and placed in supine position. Sequential compression devices were placed. General anesthesia was induced. The patient was prepped and draped in a sterile fashion and given preoperative antibiotics. Local anesthetic was given throughout the procedure. A supraumbilical incision was made. Incision was extended left lateral of the umbilicus. Dissection proceeded sharply. Subcutaneous tissue was mobilized away from the fascial defect by 2 to 3 cm in all directions. Umbilical skin was sharply excised away from the hernia sac or peritoneum. 3 cm preperitoneal adipose tissue. The peritoneum was then carefully released from the fascial defect edge with cutting current cautery. A preperitoneal space was developed for mesh placement. Polypropylene mesh was cut to size approximately 2.5 x 4.5 inches and placed preperitoneal. The mesh was secured with 15 interrupted 0 Ethibond sutures. The mesh lay in good position without tension. Subcutaneous tissue was reapproximated with interrupted 2-0 Vicryl suture. Umbilical skin was tacked back down to fascia with interrupted 2-0 Vicryl suture. Buried interrupted subdermal 3-0 Vicryl sutures were then placed. Skin was closed with a running 4-0 Monocryl subcuticular suture. Dressing was applied. Patient tolerated the procedure the procedure well was awakened and brought to recovery in good condition.
[2022-02-28] MEDS: fentaNYL 100 MCG/2 ML VIAL IVP PRN ×3 (16:05→16:15)
[2022-02-28] MEDS ORDERED: oxyCODONE 5 MG TABLET ONE (16:53)
[2022-02-28 17:12] VITALS: BP 121/82
== END 2022-02-28 11:31 | disposition home or self-care (01) ==
LOC: SDS 11:30
PROVIDERS: ATTEND Surgery
DX: K42.9 Umbilical hernia without obstruction or gangrene (principal); I10 Essential (primary) hypertension; E66.01 Morbid (severe) obesity due to excess calories; Z68.41 Body mass index [BMI] 40.0-44.9, adult; Z79.899 Other long term (current) drug therapy
CPT/HCPCS: 49585; A9270; C1781; J0131; J1170; J7040; J7120